=== PATIENT | male | born 1990 | race Caucasian/White ===

== ENCOUNTER 2022-10-11 13:18 | Emergency (ER) | payer SELFPAY ==
[~2022-10-11] VITALS: Ht 160 cm; Wt 89.4 kg
[2022-10-11 13:30] VITALS: BP 144/92
--- NOTE | 2022-10-11 13:33 | NUR ---
Patient ambulated to bed 6.
--- NOTE | 2022-10-11 13:36 | NUR ---
MARTHA Gamino evaluating patient at bedside.
[2022-10-11] MEDS ORDERED: CYCLOBENZAPRINE 10 MG TAB PO ONE (13:45)
[2022-10-11] MEDS ORDERED: KETOROLAC 30 MG/ML VIAL IM ONE (13:45)
--- NOTE | 2022-10-11 14:00 | NUR ---
Patient taken to imaging via wheelchair.
--- NOTE | 2022-10-11 14:05 | NUR ---
32 y/o male bib self with c/o low back pain s/p lifting a box at work x 3 days. Patient went to Urgent Care and was given medication for pain. Patient has been medicating at home with OTC medication. Per patient, pain is increasing. Medical History: Denies NKDA
[2022-10-11] MEDS ORDERED: LIDOCAINE 5% 1 EA PATCH TP STA (14:13)
[2022-10-11 15:37] VITALS: BP 132/85
--- NOTE | 2022-10-11 15:37 | NUR ---
Patient discharged with v/s stable. Written and verbal after care instructions given. Patient verbalized understanding. Ambulatory with steady gait. All questions addressed prior to discharge. Advised to follow up with PMD. WORK NOTE HANDED TO PATIENT.
--- NOTE | 2022-10-11 15:42 | NUR ---
The patient's care was reviewed and supervised by CALLIE FIGUEROA RN, RN.
[2022-10-12] MEDS ORDERED: LIDOCAINE 5% 1 EA PATCH TP ONE (09:00)
[2022-10-12] MEDS ORDERED: LIDOCAINE 5% 1 EA PATCH TP SCH (09:00)
== END 2022-10-11 15:37 | disposition home or self-care (01) ==
LOC: MED 13:18
DX: S39.012A Strain of muscle, fascia and tendon of lower back, initial encounter (principal); X58.XXXA Exposure to other specified factors, initial encounter; Y93.89 Activity, other specified; Y92.89 Other specified places as the place of occurrence of the external cause; Y99.8 Other external cause status
CPT/HCPCS: 72110; 96372; 99283; J1885